=== PATIENT | female | born 1965 | race Caucasian/White ===

== ENCOUNTER 2018-10-23 18:16 | Inpatient (IN) | payer OTHER ==
[2018-10-23] MEDS ORDERED: ACETAMINOPHEN 325 MG TABLET (FP) PO ONE (19:31)
--- NOTE | 2018-10-23 19:31 | PDOC ---
Rapid Medical Evaluation Medical Evaluation: I have performed a brief in-person evaluation of this patient. The patient presents with a chief complaint of: hx HTN, leukopenia sent by PMD to get admitted for pneumonia; c/o fever, cough x 4 days; is currently taking Tamiflu (was not tested for flu); states went to [facility] yesterday and diagnosed with fatigue; no CXR was done at office; +smoker Pertinent physical exam findings: In NAD, lungs clear I have ordered the following: Flu swab, cxr, tylenol, labs The patient will proceed to the ED for further evaluation. 10/23/18 19:26 Discharge Disposition - Referrals Referrals: Joce Huynh MD [Primary Care Provider] - - Patient Instructions - Post Discharge Activity
--- NOTE | 2018-10-23 19:46 | PDOC ---
History of Present Illness - General Chief Complaint: Respiratory Stated Complaint: REF. BY DOC, POSSIBLE PNEUMONIA Time Seen by Provider: 10/23/18 19:26 History Source: Patient - History of Present Illness Initial Comments: 10/23/18 20:17 53 year old female undomicilied female living in detention c/o fever x 2 days , cough, with shortness of breath denies NVD, seen by Dr. Gonzalez today given nebulizer. as per pcp patient was note dto be hypoxic in the office today. sent to ED for evaluation. + smoker, Pmhx; crohns disease. ulcers, hypertension, anxiety 10/23/18 22:07 Past History - Past Medical History Allergies/Adverse Reactions: Allergies Allergy/AdvReac Type Severity Reaction Status Date / Time Sulfa (Sulfonamide Allergy Verified 10/23/18 19:32 Antibiotics) COPD: No GI Disorders: Yes (Protonix) HTN: Yes Psychiatric Problems: Yes - Suicide/Smoking/Psychosocial Hx Smoking History: Never smoked Have you smoked in the past 12 months: No Information on smoking cessation initiated: No Hx Alcohol Use: No Drug/Substance Use Hx: No Review of Systems - Review of Systems Able to Perform ROS?: Yes Is the patient limited Slovenian proficient: No Constitutional: Yes: Fever Respiratory: Yes: Cough, Shortness of Breath Cardiac (ROS): No: Symptoms Reported, See HPI, Chest Pain, Edema, Irregular Heart Rate, Lightheadedness, Palpitations, Syncope, Chest Tightness, Other ABD/GI: No: Symptoms Reported, See HPI, Abdominal Distended, Abd. Pain w/ defecation, Blood Streaked Bowels, Constipated, Diarrhea, Difficulty Swallowing , Nausea, Poor Appetite, Poor Fluid Intake, Rectal Bleeding, Vomiting, Indigestion, Abdominal cramping, Tarry Stools, Other : No: Symptoms Reported, See HPI, Burning, Dysuria, Discharge, Frequency, Flank Pain, Hematuria, Incontinence, Pain, Urgency, Testicular Mass, Testicular Swelling, Lesions, Testicular Pain, Other Musculoskeletal: No: Symptoms Reported, See HPI, Back Pain, Gout, Joint Pain, Joint Swelling, Muscle Pain, Muscle Weakness, Neck Pain, Joint Stiffness, Other *Physical Exam - Vital Signs Last Vital Signs Temp Pulse Resp BP Pulse Ox 100.6 F H 91 H 16 126/48 L 97 10/23/18 19:28 10/23/18 19:28 10/23/18 19:28 10/23/18 19:28 10/23/18 19:28 - Physical Exam General Appearance: Yes: Appropriately Dressed HEENT: positive: Nasal Congestion Respiratory/Chest: positive: Rhonchi, Other (coarse breath sounds) Cardiovascular: positive: Tachycardia Gastrointestinal/Abdominal: positive: Normal Bowel Sounds, Soft Extremity: positive: Normal Capillary Refill, Normal Inspection, Normal Range of Motion Integumentary: positive: Normal Color, Dry, Warm Neurologic: positive: Fully Oriented, Alert Moderate Sedation - Procedure Monitoring Vital Signs: Procedure Monitoring Vital Signs Temperature 100.6 F H 10/23/18 19:28 Pulse Rate 91 H 10/23/18 19:28 Respiratory Rate 16 10/23/18 19:28 Blood Pressure 126/48 L 10/23/18 19:28 O2 Sat by Pulse Oximetry (%) 97 10/23/18 19:28 ED Treatment Course - LABORATORY CBC & Chemistry Diagram: 10/23/18 20:35 10/23/18 20:35 Progress Note - Progress Note Progress Note: A: copd exacerbation P: labs solumedrol duoneb blood culture lactic acid Medical Decision Making - Medical Decision Making 10/23/18 22:[address] gonzalez. recommends admission for copd exacerbation ans bronchitis. IV antibiotics and nebs. 10/23/18 22:49 patient signed out to [facility] for overnight admission coverage. *DC/Admit/Observation/Transfer Diagnosis at time of Disposition: COPD exacerbation, Bronchitis Fever Qualifiers: Fever type: unspecified Qualified Code(s): R50.9 - Fever, unspecified - Discharge Dispostion Decision to Admit order: Yes - Referrals Referrals: Joce Huynh MD [Primary Care Provider] - - Patient Instructions - Post Discharge Activity
[2018-10-23] MEDS: ALBUTEROL SO4 2.5/IPRATROPIUM 0.5 INH SOL 3 ML VIAL.NEB. NEB SCH ×4 (20:20→20:35)
[2018-10-23] MEDS ORDERED: ACETAMINOPHEN 325 MG TABLET (FP) ONE (20:25)
[2018-10-23] MEDS ORDERED: ALBUTEROL SO4 2.5/IPRATROPIUM 0.5 INH SOL 3 ML VIAL.NEB. NEB ONE (20:25)
[2018-10-23] MEDS ORDERED: methylPREDNISolone NA SUCC 125 MG/2 ML VIAL IVPB ONE (20:31)
[2018-10-23 20:48] LABS: BASO % 0.5 % (0-2.0); EOS % 1.7 % (0-4.5); HEMATOCRIT 33.8 % (32.4-45.2); HEMOGLOBIN 12.1 GM/dL (10.7-15.3); LYMPH % 10.7 % (8-40); MCH 33.1 pg (25.7-33.7); MCHC 35.7 g/dl (32.0-36.0); MEAN CELL VOLUME 92.7 fl (80-96); MEAN PLT VOLUME 7.3 fl (7.5-11.1); MONO % 9.7 % (3.8-10.2); NEUT % 77.4 % (42.8-82.8); PLATELET COUNT 296 K/MM3 (134-434); RBC 3.65 M/mm3 (3.60-5.2); RDW 14.9 % (11.6-15.6); WHITE BLOOD COUNT 11.5 K/mm3 (4.0-10.0)
[2018-10-23] MEDS ORDERED: methylPREDNISolone NA SUCC 125 MG/2 ML VIAL ONE (20:48)
[2018-10-23 21:17] LABS: ALBUMIN 3.9 g/dl (3.4-5.0); ALK PHOS 165 U/L (45-117); ANION GAP 8 MMOL/L (8-16); BILIRUBIN,TOTAL 0.4 mg/dL (0.2-1); BLOOD UREA NITROGEN 8 mg/dL (7-18); CALCIUM 8.7 mg/dL (8.5-10.1); CHLORIDE 100 mmol/L (98-107); CO2 25 mmol/L (21-32); CREATININE 0.8 mg/dL (0.55-1.3); GLUCOSE,RANDOM 134 mg/dL (74-106); POTASSIUM 3.9 mmol/L (3.5-5.1); SGOT/AST 29 U/L (15-37); SGPT/ALT 57 U/L (13-61); SODIUM 132 mmol/L (136-145); TOT PROT 7.4 g/dl (6.4-8.2)
[2018-10-23] MEDS ORDERED: CEFTRIAXONE 1,000 MG in DEXTROSE 5%-WATER - 50 ML IVPB ONE (22:07)
[2018-10-23] MEDS ORDERED: AZITHROMYCIN IVPB 500 MG in DEXTROSE 5%-WATER - 250 ML IVPB ONE (22:07)
[2018-10-23] MEDS ORDERED: AZITHROMYCIN IVPB 500 MG/250 ML BAG IVPB ONE (22:28)
[2018-10-23] MEDS ORDERED: CEFTRIAXONE 1 GM/50 ML BAG ONE (22:29)
--- NOTE | 2018-10-23 23:06 | HP ---
CHIEF COMPLAINT: Cough, SOB, Fever PCP: Dr. Huynh HISTORY OF PRESENT ILLNESS: This is a 53 y/o woman homeless living at a senior care with a PMHx of: COPD, Smoker 1PPD, Hypertension. Who presents to the ED with cough, SOB, fever. Patient was seen by her PCP for same, did not picking supervisor her Rxs. Patient reports having a productive cough yellow/green sputum worse over the last 3 days. Patient reports having a subjective fever 102.0 at the senior care. Patient denies GALINDO, dizziness, palpitations, AP, N/V/D, constipation, dysuria. ER course was notable for: (1) Chest Xray- no acute pathology (2) Rapid Influenza- neg A+B (3) WBC 11.5 Recent Travel: None PAST MEDICAL HISTORY: COPD HTN Smoker 1PPD PAST SURGICAL HISTORY: Bilateral TKR Bilateral Foot Fusions L- Forearm with plates/screws Social History: Smoking: Cigarette 1PPD Alcohol: Denies Drugs: Denies Resides in a Assisted Family History: Allergies Sulfa (Sulfonamide Antibiotics) Allergy (Verified 10/23/18 19:32) HOME MEDICATIONS: 3 Medication Instructions Recorded Alprazolam [Xanax] 2 mg PO BID 10/24/18 Amlodipine Besylate [Norvasc -] 20 mg PO BID 10/24/18 Atenolol [Tenormin -] 50 mg PO BID 10/24/18 Clonazepam [Klonopin] 1 mg PO BID 10/24/18 Gabapentin [Neurontin -] 300 mg PO BID 10/24/18 Losartan Potassium [Cozaar -] 50 mg PO DAILY 10/24/18 Pantoprazole Sodium [Protonix -] 40 mg PO DAILY 10/24/18 REVIEW OF SYSTEMS CONSTITUTIONAL: fever Absent: chills, diaphoresis, generalized weakness, malaise, loss of appetite, weight change HEENT: Absent: rhinorrhea, nasal congestion, throat pain, throat swelling, difficulty swallowing, mouth swelling, ear pain, eye pain, visual changes CARDIOVASCULAR: Absent: chest pain, syncope, palpitations, irregular heart rate, lightheadedness , peripheral edema RESPIRATORY: cough, shortness of breath, wheezing Absent: dyspnea with exertion, orthopnea, stridor, hemoptysis GASTROINTESTINAL: Absent: abdominal pain, abdominal distension, nausea, vomiting, diarrhea, constipation, melena, hematochezia GENITOURINARY: Absent: dysuria, frequency, urgency, hesitancy, hematuria, flank pain, genital pain MUSCULOSKELETAL: Absent: myalgia, arthralgia, joint swelling, back pain, neck pain SKIN: Absent: rash, itching, pallor HEMATOLOGIC/IMMUNOLOGIC: Absent: easy bleeding, easy bruising, lymphadenopathy, frequent infections ENDOCRINE: Absent: unexplained weight gain, unexplained weight loss, heat intolerance, cold intolerance NEUROLOGIC: Absent: headache, focal weakness or paresthesias, dizziness, unsteady gait, seizure, mental status changes, bladder or bowel incontinence PSYCHIATRIC: Absent: anxiety, depression, suicidal or homicidal ideation, hallucinations. PHYSICAL EXAMINATION Vital Signs - 24 hr 10/23/18 19:28 Temperature 100.6 F H Pulse Rate 91 H Respiratory 16 Rate Blood Pressure 126/48 L O2 Sat by Pulse 97 Oximetry (%) GENERAL: Awake, alert, and fully oriented, in no acute distress. HEAD: Normal with no signs of trauma. EYES: Pupils equal, round and reactive to light, extraocular movements intact, sclera anicteric, conjunctiva clear. No lid lag. EARS, NOSE, THROAT: Ears normal, nares patent, oropharynx clear without exudates. Moist mucous membranes. NECK: Normal range of motion, supple without lymphadenopathy, JVD, or masses. LUNGS: Scattered diffuse wheeze with crackles. + cough. No accessory muscle use. HEART: Regular rate and rhythm, normal S1 and S2 without murmur, rub or gallop. ABDOMEN: Soft, nontender, not distended, normoactive bowel sounds, no guarding, no rebound, no masses. No hepatomegaly or splenomegaly. MUSCULOSKELETAL: Normal range of motion at all joints. No bony deformities or tenderness. No CVA tenderness. UPPER EXTREMITIES: 2+ pulses, warm, well-perfused. No cyanosis. No clubbing. No peripheral edema. LOWER EXTREMITIES: 2+ pulses, warm, well-perfused. No calf tenderness. No peripheral edema. NEUROLOGICAL: Cranial nerves II-XII intact. Normal speech. Normal gait. PSYCHIATRIC: Cooperative. Good eye contact. Appropriate mood and affect. SKIN: Warm, dry, normal turgor, no rashes or lesions noted, normal capillary refill. Laboratory Results - last 24 hr 10/23/18 10/23/18 10/23/18 19:33 20:35 20:35 WBC 11.5 H RBC 3.65 Hgb 12.1 Hct 33.8 MCV 92.7 MCH 33.1 MCHC 35.7 RDW 14.9 Plt Count 296 MPV 7.3 L Absolute Neuts (auto) 8.9 H Neutrophils % 77.4 Lymphocytes % 10.7 Monocytes % 9.7 Eosinophils % 1.7 Basophils % 0.5 Nucleated RBC % 0 Sodium Potassium Chloride Carbon Dioxide Anion Gap BUN Creatinine Creat Clearance w eGFR Random Glucose Lactic Acid 1.1 Calcium Total Bilirubin AST ALT Alkaline Phosphatase Troponin I Total Protein Albumin Influenza A (Rapid) Negative Influenza B (Rapid) Negative 10/23/18 20:35 WBC RBC Hgb Hct MCV MCH MCHC RDW Plt Count MPV Absolute Neuts (auto) Neutrophils % Lymphocytes % Monocytes % Eosinophils % Basophils % Nucleated RBC % Sodium 132 L Potassium 3.9 Chloride 100 Carbon Dioxide 25 Anion Gap 8 BUN 8 Creatinine 0.8 Creat Clearance w eGFR 74.47 Random Glucose 134 H Lactic Acid Calcium 8.7 Total Bilirubin 0.4 AST 29 ALT 57 Alkaline Phosphatase 165 H Troponin I < 0.02 Total Protein 7.4 Albumin 3.9 Influenza A (Rapid) Influenza B (Rapid) ASSESSMENT/PLAN: This is a 53 y/o woman with a PMHx of: COPD, Tobacco Use 1PPD. Admitted for Acute COPD Exacerbation, Chronic Bronchitis for further evaluation of their emergent condition. Plan: See Problem List FEN PO Fluids as tolerated Replete lytes prn Low Na Diet DVT ppx OOB SCDs Heparin SQ Dispo: Requires Inpatient Care Problem List - Problem (1) COPD exacerbation Assessment/Plan: Chest Xray- no acute chest pathology Duonebs, solumederol given in ED Appreciate Pulm consult Will continue Solumederol w/taper Duonebs Patient counseled on smoking cessation, patient is amendable, however declines Nicoderm Patch O2 Monitor CBC, BMP Monitor vitals Continue ABX Code(s): J44.1 - CHRONIC OBSTRUCTIVE PULMONARY DISEASE W (ACUTE) EXACERBATION (2) Bronchitis Assessment/Plan: See above Continue IV ABX Monitor vitals Code(s): J40 - BRONCHITIS, NOT SPECIFIED ACUTE OR CHRONIC (3) Fever Assessment/Plan: See above Code(s): R50.9 - FEVER, UNSPECIFIED Qualifiers: Fever type: unspecified Qualified Code(s): R50.9 - Fever, unspecified (4) HTN (hypertension) Assessment/Plan: stable Continue home meds Monitor renal function Code(s): I10 - ESSENTIAL (PRIMARY) HYPERTENSION (5) Anxiety Assessment/Plan: Continue home meds Code(s): F41.9 - ANXIETY DISORDER, UNSPECIFIED (6) Tobacco dependence due to cigarettes Assessment/Plan: Counseled on Smoking Cessation Code(s): F17.210 - NICOTINE DEPENDENCE, CIGARETTES, UNCOMPLICATED Visit type - Emergency Visit Emergency Visit: Yes ED Registration Date: 10/23/18 Care time: The patient presented to the Emergency Department on the above date and was hospitalized for further evaluation of their emergent condition. - New Patient This patient is new to me today: Yes Date on this admission: 10/23/18 - Critical Care Critical Care patient: No
[2018-10-24 02:40] VITALS: BMI 22.0
[2018-10-24] MEDS: methylPREDNISolone NA SUCC 40 MG/1 ML VIAL IVPUSH SCH ×2 (03:05→10:13)
[2018-10-24] MEDS ORDERED: PNEUMOC 13-VAL CONJ-DIP CRM/PF 0.5 ML DISP.SYRIN IM ONE (06:40)
[2018-10-24 06:54] VITALS: TEMP 98.1
[2018-10-24 07:06] LABS: HEMATOCRIT 29.7 % (32.4-45.2); HEMOGLOBIN 10.6 GM/dL (10.7-15.3); LYMPH % 6.1 % (8-40); MCH 32.9 pg (25.7-33.7); MCHC 35.7 g/dl (32.0-36.0); MEAN PLT VOLUME 7.7 fl (7.5-11.1); MONO % 1.6 % (3.8-10.2); NEUT % 92.3 % (42.8-82.8); PLATELET COUNT 289 K/MM3 (134-434); RBC 3.23 M/mm3 (3.60-5.2); RDW 14.9 % (11.6-15.6); WHITE BLOOD COUNT 9.9 K/mm3 (4.0-10.0)
[2018-10-24] MEDS: ALBUTEROL SO4 2.5/IPRATROPIUM 0.5 INH SOL 3 ML VIAL.NEB. NEB SCH ×3 (07:07→15:59)
[2018-10-24 07:52] LABS: ANION GAP 6 MMOL/L (8-16); BLOOD UREA NITROGEN 9 mg/dL (7-18); CALCIUM 8.7 mg/dL (8.5-10.1); CHLORIDE 101 mmol/L (98-107); CO2 26 mmol/L (21-32); CREATININE 0.8 mg/dL (0.55-1.3); GLUCOSE,RANDOM 203 mg/dL (74-106); POTASSIUM 4.1 mmol/L (3.5-5.1); SODIUM 133 mmol/L (136-145)
[2018-10-24] MEDS ORDERED: PNEUMOCOCCAL 23 VACCINE 0.5 ML VIAL IM ONE (09:00)
[2018-10-24] MEDS ORDERED: FLU VACCINE QUAD 60 MCG/0.5 ML (MDV 18-19) IM ONE (09:00)
[2018-10-24] MEDS ORDERED: ALPRAZolam 2 MG TABLET PO PRN (09:33)
[2018-10-24] MEDS ORDERED: ACETAMINOPHEN 325 MG TABLET (FP) PO PRN (09:37)
[2018-10-24] MEDS ORDERED: PANTOPRAZOLE 40 MG TABLET (FP) PO SCH (10:00)
[2018-10-24] MEDS ORDERED: ATENOLOL 50 MG TABLET (FP) PO SCH (10:00)
[2018-10-24] MEDS ORDERED: LOSARTAN POTASSIUM 50 MG TABLET (FP) PO SCH (10:00)
[2018-10-24] MEDS ORDERED: AZITHROMYCIN IVPB 500 MG in DEXTROSE 5%-WATER - 250 ML IVPB SCH (10:00)
[2018-10-24] MEDS ORDERED: AZITHROMYCIN IVPB 500 MG/250 ML BAG IVPB SCH (10:00)
[2018-10-24] MEDS ORDERED: GABAPENTIN 300 MG CAPSULE (FP) PO SCH (10:00)
[2018-10-24] MEDS ORDERED: CEFTRIAXONE 1 GM in DEXTROSE 5%-WATER - 50 ML IVPB SCH (10:00)
[2018-10-24] MEDS ORDERED: PATIENT'S OWN MEDICATION (NON-FORMULARY) (Clonazepam [Klonopin] 1 MG) PO SCH (10:00)
[2018-10-24] MEDS ORDERED: cefTRIAXone SODIUM 1 GM VIAL ONE (10:05)
[2018-10-24] MEDS ORDERED: DEXTROSE 5%-WATER - 50 ML IVPB ONE (10:05)
[2018-10-24 10:23] LABS: ANISOCYTOSIS 0; HELMET CELLS 0; HOWELL-JOLLY BODIES 0; MACROCYTOSIS 0; OVALOCYTE 0; PLATELET ESTIMATE NORMAL; ROULEAU 0; SICKELED CELLS 0; TARGET CELLS 0; TEAR DROP CELLS 0; TOXIC GRANULATION 0
--- NOTE | 2018-10-24 14:25 | PN ---
Progress Note (short form) - Note Progress Note: PULMONARY CONSULTATION DICTATED 10/24/18 IMP ACUTE HYPOXEMIC RESPIRATORY FAILURE COPD EXACERBATION BILATERAL GROUND GLASS INFILTRATES TOBACCO ABUSE PLAN IV STEROIDS INHALED BRONCHODILATORS ABX SPUTUM C+S F/U CHEST CT OUTPATIENT PFTS OUTPATIENT DR BLAKELY Problem List - Problems (1) Acute hypoxemic respiratory failure Code(s): J96.01 - ACUTE RESPIRATORY FAILURE WITH HYPOXIA (2) COPD exacerbation Code(s): J44.1 - CHRONIC OBSTRUCTIVE PULMONARY DISEASE W (ACUTE) EXACERBATION (3) Fever Code(s): R50.9 - FEVER, UNSPECIFIED Qualifiers: Fever type: unspecified Qualified Code(s): R50.9 - Fever, unspecified (4) HTN (hypertension) Code(s): I10 - ESSENTIAL (PRIMARY) HYPERTENSION (5) Tobacco dependence due to cigarettes Code(s): F17.210 - NICOTINE DEPENDENCE, CIGARETTES, UNCOMPLICATED (6) Ground glass opacity present on imaging of lung Code(s): R91.8 - OTHER NONSPECIFIC ABNORMAL FINDING OF LUNG FIELD
[2018-10-24 14:54] VITALS: BP 125/79; PULSE 82
--- NOTE | 2018-10-24 15:43 | PN ---
Progress Note, Physician Chief Complaint: 53 y.o F-with history of COPD and smoking was hospitalized after she presented to the office with fever, hypoxemia, SOB and cough with yellow thick sputum History of Present Illness: COPD. Smoking addition. HTN Multiple ankle surgeries. Chronic pain . Anxiety disorder. - Current Medication List Current Medications: Active Medications Acetaminophen (Tylenol -) 650 mg PO Q6H PRN PRN Reason: FEVER Albuterol/Ipratropium (Duoneb -) 1 amp NEB RQID [facility] Last Admin: 10/24/18 12:38 Dose: Not Given Alprazolam (Xanax -) 2 mg PO Q12H PRN PRN Reason: ANXIETY Last Admin: 10/24/18 10:34 Dose: 2 mg Atenolol (Tenormin -) 50 mg PO BID [facility] Last Admin: 10/24/18 10:13 Dose: 50 mg Gabapentin (Neurontin -) 300 mg PO BID [facility] Last Admin: 10/24/18 10:13 Dose: 300 mg Azithromycin (Zithromax 500mg Ivpb (Pre-Docked)) 500 mg in 250 mls @ 250 mls/ hr IVPB DAILY [facility] Last Admin: 10/24/18 11:13 Dose: 250 mls/hr Ceftriaxone Sodium 1 gm/ (Dextrose) 50 mls @ 100 mls/hr IVPB DAILY [facility]; Protocol Last Admin: 10/24/18 10:12 Dose: 100 mls/hr Losartan Potassium (Cozaar -) 50 mg PO DAILY [facility] Last Admin: 10/24/18 10:13 Dose: 50 mg Methylprednisolone Sodium Succinate (Solu-Medrol -) 40 mg IVPUSH Q8H-IV [facility] Last Admin: 10/24/18 10:13 Dose: 40 mg Non-Formulary Medication (Clonazepam [Klonopin]) 1 mg PO BID [facility] Pantoprazole Sodium (Protonix -) 40 mg PO DAILY [facility] Last Admin: 10/24/18 10:13 Dose: 40 mg - Objective Vital Signs: Vital Signs Temperature 98.1 F 10/24/18 14:47 Pulse Rate 82 10/24/18 14:47 Respiratory Rate 22 H 10/24/18 14:47 Blood Pressure 125/79 10/24/18 14:47 O2 Sat by Pulse Oximetry (%) 98 10/23/18 23:59 Constitutional: Yes: No Distress, Anxious Eyes: Yes: Conjunctiva Clear, EOM Intact HENT: Yes: Atraumatic, Normocephalic Neck: Yes: Supple, Trachea Midline. No: Decreased ROM, Lymphadenopathy Cardiovascular: Yes: Regular Rate and Rhythm, S1, S2. No: Bradycardia, Tachycardia, Pulse Irregular, Bruit, JVD, Gallop, Murmur Respiratory: Yes: Regular, Cough, Rhonchi, SOB, SOB on Exertion, Wheezes Gastrointestinal: Yes: Normal Bowel Sounds, Soft. No: Abdomen, Obese ...Rectal Exam: Yes: Deferred Genitourinary: No: Anuria, Bladder Distention, CVA Tenderness - Left, CVA Tenderness - Right Breast(s): Yes: WNL Musculoskeletal: No: Back Pain, Joint Stiffness, Joint Swelling Extremities: No: Amputation, Calf Tenderness, Cyanosis Edema: No Peripheral Pulses WNL: Yes Integumentary: Yes: WNL Neurological: Yes: Alert, Oriented. No: Aphasia, Dysarthria ...Motor Strength: WNL Psychiatric: Yes: WNL Labs: CBC, BMP 10/24/18 06:10 10/24/18 06:10 Laboratory Results - last 24 hr 10/23/18 10/23/18 10/23/18 19:33 20:35 20:35 WBC 11.5 H RBC 3.65 Hgb 12.1 Hct 33.8 MCV 92.7 MCH 33.1 MCHC 35.7 RDW 14.9 Plt Count 296 MPV 7.3 L Absolute Neuts (auto) 8.9 H Neutrophils % 77.4 Neutrophils % (Manual) Band Neutrophils % Lymphocytes % 10.7 Lymphocytes % (Manual) Monocytes % 9.7 Monocytes % (Manual) Eosinophils % 1.7 Eosinophils % (Manual) Basophils % 0.5 Basophils % (Manual) Myelocytes % (Man) Promyelocytes % (Man) Blast Cells % (Manual) Nucleated RBC % 0 Metamyelocytes Hypochromia Toxic Granulation Dohle Bodies Platelet Estimate Polychromasia Poikilocytosis Basophilic Stippling Anisocytosis Microcytosis Macrocytosis Spherocytes Sickle Cells Target Cells Tear Drop Cells Ovalocytes Stomatocytes Helmet Cells [place] Bodies [place] Rings [place] Cells Acanthocytes (Spur) Rouleaux Fragmented RBCs Schistocytes Sodium Cancelled Potassium Cancelled Chloride Cancelled Carbon Dioxide Cancelled Anion Gap Cancelled BUN Cancelled Creatinine Cancelled Creat Clearance w eGFR Cancelled Random Glucose Cancelled Lactic Acid Calcium Cancelled Total Bilirubin AST ALT Alkaline Phosphatase Troponin I Total Protein Albumin Influenza A (Rapid) Negative Influenza B (Rapid) Negative 10/23/18 10/23/18 10/24/18 20:35 20:35 06:10 WBC 9.9 RBC 3.23 L Hgb 10.6 L Hct 29.7 L MCV 92.0 MCH 32.9 MCHC 35.7 RDW 14.9 Plt Count 289 MPV 7.7 Absolute Neuts (auto) 9.1 H Neutrophils % 92.3 H Neutrophils % (Manual) 92.0 H Band Neutrophils % 0.0 Lymphocytes % 6.1 L D Lymphocytes % (Manual) 6.0 L Monocytes % 1.6 L D Monocytes % (Manual) 2 L Eosinophils % 0.0 D Eosinophils % (Manual) 0.0 Basophils % 0.0 Basophils % (Manual) 0.0 Myelocytes % (Man) 0 Promyelocytes % (Man) 0 Blast Cells % (Manual) 0 Nucleated RBC % 0 Metamyelocytes 0 Hypochromia 0 Toxic Granulation 0 Dohle Bodies 0 Platelet Estimate Normal Polychromasia 0 Poikilocytosis 0 Basophilic Stippling 0 Anisocytosis 0 Microcytosis 0 Macrocytosis 0 Spherocytes 0 Sickle Cells 0 Target Cells 0 Tear Drop Cells 0 Ovalocytes 0 Stomatocytes 0 Helmet Cells 0 [place] Bodies 0 [place] Rings 0 Kyle Cells 0 Acanthocytes (Spur) 0 Rouleaux 0 Fragmented RBCs 0 Schistocytes 0 Sodium 132 L Potassium 3.9 Chloride 100 Carbon Dioxide 25 Anion Gap 8 BUN 8 Creatinine 0.8 Creat Clearance w eGFR 74.47 Random Glucose 134 H Lactic Acid 1.1 Calcium 8.7 Total Bilirubin 0.4 AST 29 ALT 57 Alkaline Phosphatase 165 H Troponin I < 0.02 Total Protein 7.4 Albumin 3.9 Influenza A (Rapid) Influenza B (Rapid) 10/24/18 06:10 WBC RBC Hgb Hct MCV MCH MCHC RDW Plt Count MPV Absolute Neuts (auto) Neutrophils % Neutrophils % (Manual) Band Neutrophils % Lymphocytes % Lymphocytes % (Manual) Monocytes % Monocytes % (Manual) Eosinophils % Eosinophils % (Manual) Basophils % Basophils % (Manual) Myelocytes % (Man) Promyelocytes % (Man) Blast Cells % (Manual) Nucleated RBC % Metamyelocytes Hypochromia Toxic Granulation Dohle Bodies Platelet Estimate Polychromasia Poikilocytosis Basophilic Stippling Anisocytosis Microcytosis Macrocytosis Spherocytes Sickle Cells Target Cells Tear Drop Cells Ovalocytes Stomatocytes Helmet Cells [place] Bodies [place] Rings [place] Cells Acanthocytes (Spur) Rouleaux Fragmented RBCs Schistocytes Sodium 133 L Potassium 4.1 Chloride 101 Carbon Dioxide 26 Anion Gap 6 L BUN 9 Creatinine 0.8 Creat Clearance w eGFR 74.47 Random Glucose 203 H Lactic Acid Calcium 8.7 Total Bilirubin AST ALT Alkaline Phosphatase Troponin I Total Protein Albumin Influenza A (Rapid) Influenza B (Rapid) Problem List - Problems (1) Acute hypoxemic respiratory failure Assessment/Plan: Continue nebs Steroids. O2 supplemental. Code(s): J96.01 - ACUTE RESPIRATORY FAILURE WITH HYPOXIA (2) COPD exacerbation Assessment/Plan: continue nebs steroid will taper off. Code(s): J44.1 - CHRONIC OBSTRUCTIVE PULMONARY DISEASE W (ACUTE) EXACERBATION (3) Ground glass opacity present on imaging of lung Code(s): R91.8 - OTHER NONSPECIFIC ABNORMAL FINDING OF LUNG FIELD (4) HTN (hypertension) Code(s): I10 - ESSENTIAL (PRIMARY) HYPERTENSION Qualifiers: Hypertension type: essential hypertension Qualified Code(s): I10 - Essential (primary) hypertension (5) Tobacco dependence due to cigarettes Assessment/Plan: Smoking stopping again advised and discussed. Code(s): F17.210 - NICOTINE DEPENDENCE, CIGARETTES, UNCOMPLICATED
--- NOTE | 2018-10-24 16:54 | CONS ---
DATE OF CONSULTATION: 10/24/2018 PULMONARY CONSULTATION REFERRING PHYSICIAN: Joce Huynh M.D. HISTORY OF PRESENT ILLNESS: The patient is a 53-year-old white female with a past medical history of COPD/asthma, longstanding history of tobacco abuse, 2 packs per day for many years, currently smoking a half pack per day, colitis, hypertension, anxiety, currently homeless, lives in a senior living, admitted to [facility] complaining of a 2-day history of fever, cough, chest congestion, and shortness of breath. Patient was seen by Dr. Huynh the day of admission, noted to be hypoxic, at which time she was sent to the emergency room. In the ER, she underwent a CTA chest CT which revealed evidence of bilateral ground glass opacity. She was admitted. She was started on IV steroids, inhaled bronchodilators and antibiotic therapy. Patient denies any chest pain, nausea, vomiting, diaphoresis. Denies any hemoptysis. As stated before, she denies any history of occupational exposure to chemicals or fumes. As stated before, she has history of tobacco use many years and currently still smokes. 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 There is no history of recent travel. PAST MEDICAL HISTORY: Again includes COPD, hypertension, history of colitis. REVIEW OF SYSTEMS: Positive cough. Positive shortness of breath. Positive sputum production. Positive fever. Positive chills. No nausea. No vomiting. No hemoptysis. No abdominal pain. CURRENT MEDICATIONS: Include Solu-Medrol, Tylenol, Cozaar, Zithromax, ceftriaxone, Neurontin, Xanax, DuoNeb, Tenormin, Protonix. PHYSICAL EXAMINATION: GENERAL: The patient is a well-developed, nourished female, awake, alert, currently in no acute distress. VITAL SIGNS: T-max 100.6, currently 98.1. Blood pressure 114/54, respiratory rate 20, and O2 saturation is 98% on room air . HEENT: Normocephalic, atraumatic. NECK: Supple without any adenopathy. HEART: Regular S1, S2. CHEST: Scattered bilateral wheezes. ABDOMEN: Soft, bowel sounds positive. EXTREMITIES: No cyanosis, edema. LABORATORY: WBC is 9.9, hemoglobin 10.6, hematocrit 29.7, initial WBC was 11.5, hemoglobin 12.1, hematocrit 33.8, with a platelet count of 296,000. Chemistries, BUN is 9, creatinine 0.9, serum sodium 133. Chest CT, no chronic change of lung disease. There are isolated increased markings bilaterally and a few areas of ground glass opacification bilaterally. IMPRESSION: Acute hypoxemic respiratory failure likely secondary to: 1. Acute exacerbation of chronic obstructive pulmonary disease. 2. pneumonia versus bronchitis. 3. History of hypertension. 4. Anxiety. 5. Ground glass opacities. 6. Tobacco abuse. PLAN: Continue antibiotic therapy, supplemental O2, inhaled bronchodilators, a short course of steroids, as well as obtain a followup chest CT in approximately 6-8 weeks to document resolution of ground glass opacities. Also recommend yearly low-dose chest CT and lung cancer screening. Smoking cessation counseled. INDRA BLAKELY M.D. [id number]
[2018-10-25] MEDS ORDERED: methylPREDNISolone NA SUCC 40 MG/1 ML VIAL IVPUSH SCH (10:00)
== END 2018-10-24 17:17 | disposition left against medical advice (07) | DRG 189 ==
LOC: JER 18:16 → JERBED 22:36 → J5S 10-24 01:43
PROVIDERS: ADMIT Internal Medicine; ATTEND Internal Medicine
DX: J96.01 Acute respiratory failure with hypoxia (principal); J44.1 Chronic obstructive pulmonary disease with (acute) exacerbation; I10 Essential (primary) hypertension; F17.210 Nicotine dependence, cigarettes, uncomplicated; F41.9 Anxiety disorder, unspecified; R50.9 Fever, unspecified; R91.8 Other nonspecific abnormal finding of lung field; Z96.653 Presence of artificial knee joint, bilateral; J42 Unspecified chronic bronchitis; Z59.0 Homelessness
CPT/HCPCS: 36415; 71046-TC-FY; 71250-TC; 80048; 80053; 83605; 84484; 85025; 87040; 87804; 90688; 90732; 94640; 99282-25; G0008; G0009

== ENCOUNTER 2018-12-27 22:04 | Inpatient (IN) | payer OTHER | END 2019-01-03 10:33 | disposition left against medical advice (07) | LOC: JERBED 12-28 01:17 → JER 22:04 → JICU 12-28 04:49 → J6S 12-28 21:13 ==

== ENCOUNTER 2019-02-15 20:40 | Emergency (ER) | payer OTHER ==
[2019-02-15 22:07] VITALS: BMI 36.1
--- NOTE | 2019-02-15 23:22 | PDOC ---
History of Present Illness - General Chief Complaint: Syncope/Near Syncope Stated Complaint: SYNCOPE Time Seen by Provider: 02/15/19 22:56 History Source: Patient Exam Limitations: No Limitations - History of Present Illness Initial Comments: 53 yo F PMH HTN, panic disorder, Tourette's, PTSD, p/w fall and LOC. Patient normally stays at the [facility], however decided to "live outside" for the past two days. Was not able to sleep very much during that time. However, last night she got food and had a good night sleep. She says she was walking with friends and fell, hit her head, then lost consciousness. She does not know how long she was down. She states her friend told her "the curb debbie up", however she does not believe that she tripped. She denies dizziness or lightheadness prior to the fall. She had L elbow pain and leg pain at the areas where she fell, also feels pain at the back of the head. Denies neck pain or ROM issues. denies drug use or change in medications. Denies CP, SOB, constipation/diarrhea, fevers/chills, nausea/vomiting, dizziness , lightheadedness, headache. 02/15/19 23:17 Past History - Past Medical History Allergies/Adverse Reactions: Allergies Allergy/AdvReac Type Severity Reaction Status Date / Time Sulfa (Sulfonamide Allergy Verified 02/15/19 21:28 Antibiotics) Home Medications: Ambulatory Orders Albuterol Sulfate Inhaler - [Ventolin HFA Inhaler -] 1 - 2 inh PO QID 01/29/16 Atenolol [Tenormin -] 50 mg PO BID 01/29/16 Haloperidol Lactate [Haldol] 5 mg PO BID 01/29/16 Simvastatin 10 mg PO HS 01/29/16 Tiotropium [place] [Spiriva] 1 inh PO DAILY 01/29/16 Amlodipine Besylate [Norvasc -] 20 mg PO BID 10/24/18 Clonazepam [Klonopin] 1 mg PO BID 10/24/18 Gabapentin [Neurontin -] 300 mg PO BID 10/24/18 Losartan Potassium [Cozaar -] 50 mg PO DAILY 10/24/18 Pantoprazole Sodium [Protonix -] 40 mg PO DAILY 10/24/18 Asthma: Yes COPD: Yes GI Disorders: Yes (Protonix) HTN: Yes Psychiatric Problems: Yes (panic,anxiety,TErrets mild, PTSD) - Immunization History Immunization Up to Date: Yes - Suicide/Smoking/Psychosocial Hx Smoking History: Unknown if ever smoked Have you smoked in the past 12 months: No Number of Cigarettes Smoked Daily: 6 Information on smoking cessation initiated: No 'Breaking Loose' booklet given: 11/28/16 Hx Alcohol Use: Yes Drug/Substance Use Hx: Yes Substance Use Type: None Review of Systems - Review of Systems Constitutional: No: Chills, Diaphoresis, Fever HEENTM: No: Eye Pain, Blurred Vision, Recent change in vision, Double Vision, Nose Pain, Tinnitus, Throat Pain, Throat Swelling, Mouth Pain, Difficulty Swallowing, Mouth Swelling Respiratory: No: Cough, Orthopnea, Shortness of Breath Cardiac (ROS): No: Chest Pain, Lightheadedness, Palpitations ABD/GI: Yes: Poor Fluid Intake. No: Constipated, Diarrhea, Nausea, Vomiting Neurological: No: Headache, Numbness, Pre-Existing Deficit, Seizure Psychiatric: Yes: Other (panic disorder) *Physical Exam - Vital Signs Last Vital Signs Temp Pulse Resp BP Pulse Ox 97.7 F 63 20 125/69 95 02/15/19 21:28 02/15/19 21:28 02/15/19 21:28 02/15/19 21:28 02/15/19 21:28 - Physical Exam General Appearance: Yes: Disheveled, Other (sleepy) HEENT: positive: EOMI, Other (horizontal nystagmus bilaterally) Neck: positive: Trachea midline, Normal Thyroid, Supple. negative: Decreased range of motion, Rigidity, Tender lateral, Tender midline Respiratory/Chest: positive: Lungs Clear, Normal Breath Sounds. negative: Chest Tender, Respiratory Distress, Accessory Muscle Use Cardiovascular: positive: Regular Rhythm, Regular Rate Gastrointestinal/Abdominal: positive: Normal Bowel Sounds, Soft. negative: Tender Musculoskeletal: positive: Normal Inspection. 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 negative: Alert (sleepy), Sensory Deficit Medical Decision Making - Medical Decision Making History indicates fall w/o presyncope or syncope. Will get CT head, CBC, and CMP. Give acetaminophen IV for pain. 02/15/19 23:35
[2019-02-15] MEDS ORDERED: ACETAMINOPHEN 1000 MG/100 ML VIAL (NON FORMULARY) IVPB ONE (23:29)
[2019-02-15] MEDS ORDERED: ACETAMINOPHEN INJECTION 100 ML IVPB ONE (23:57)
[2019-02-16] MEDS ORDERED: ACETAMINOPHEN 325 MG TABLET (FP) PO ONE (00:21)
[2019-02-16] MEDS ORDERED: ACETAMINOPHEN 325 MG TABLET (FP) ONE (00:37)
--- NOTE | 2019-02-16 01:04 | PDOC ---
Documentation entered by Sangita Houser SCRIBE, acting as scribe for Baylee Xavier MD. Baylee Xavier MD: This documentation has been prepared by the Mik spaulding Xhesika, SCRIBE, under my direction and personally reviewed by me in its entirety. I confirm that the documentation accurately reflects all work, treatment, procedures, and medical decision making performed by me. Attending Attestation - Resident Resident Name: Titi Bean - [facility] HPI: 02/16/19 00:53 The patient is a 53 year old female, from [facility], with a significant PMH of psychiatric d/o and COPD who presents to the emergency department via EMS s/p fall. Patient states she lives at [facility], however she has been living outside for the past 2 days. The patient states she was with her friends walking outside when she fell, hit her head and lost consciousness, however, she does not remember how long she was unconscious for. The patient notes she was able to ambulate shortly after. The patient states she endorsed a L elbow laceration associated with pain since this morning. The patient does not remember when her last tetanus was. The patient denies chest pain, shortness of breath, neck pain, sweating or dizziness. Denies fever, chills, nausea, vomiting, diarrhea and constipation. Denies dysuria, frequency, urgency and hematuria. Allergies: Sulfa PCP: Dr. Huynh - Physicial Exam PE: 02/16/19 00:53 GENERAL: Awake, alert, and fully oriented, in no acute distress HEAD: No signs of trauma EYES: PERRLA, EOMI, sclera anicteric, conjunctiva clear ENT: Auricles normal inspection, hearing grossly normal, nares patent, oropharynx clear without exudates. Moist mucosa NECK: Normal ROM, supple, no lymphadenopathy, JVD, or masses LUNGS: Breath sounds equal, clear to auscultation bilaterally. No wheezes, and no crackles HEART: Regular rate and rhythm, normal S1 and S2, no murmurs, rubs or gallops ABDOMEN: Soft, nontender, normoactive bowel sounds. No guarding, no rebound. No masses EXTREMITIES: (+) 1.5cm laceration to her L elbow. Normal range of motion, no edema. No clubbing or cyanosis. No cords, erythema, or tenderness NEUROLOGICAL: Cranial nerves II through XII grossly intact. SKIN: Warm, Dry, normal turgor, no rashes or lesions noted. - Medical Decision Making 02/16/19 01:00 Pt presents to the Ed complaining of fall with hitting her head and LOC. Also has laceration to her L elbow that is greater than [address] old[address] head to rule out intracranial bleed. Laceration is not eligible for suturing given how old it is, but will irrigate. Will give tetanus vaccine. Will likely discharge home if CT head is negative.
--- NOTE | 2019-02-16 01:46 | PDOC ---
*Physical Exam - Vital Signs Last Vital Signs Temp Pulse Resp BP Pulse Ox 97.7 F 63 20 125/69 95 02/15/19 21:28 02/15/19 21:28 02/15/19 21:28 02/15/19 21:28 02/15/19 21:28 ED Treatment Course - Medications Given in the ED: ED Medications Discontinued Medications Generic Name Dose Route Start Last Admin Trade Name Lei PRN Reason Stop Dose Admin Acetaminophen 1,000 mg 02/15/19 23:29 02/16/19 00:41 Ofirmev Injection - IVPB 02/15/19 23:30 Not Given ONCE ONE Acetaminophen 975 mg 02/16/19 00:21 02/16/19 00:40 Tylenol - PO 02/16/19 00:22 975 mg ONCE ONE Administration Medical Decision Making - Medical Decision Making 53 yo F PMH HTN, panic disorder, Tourette's, PTSD, presenting after a fall. 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 Mass effect: None. Brain parenchyma: Likely chronic ischemic changes" Wound cleaned with normal saline irrigation after lidocaine preparation. Steri- strips placed. No foreign body noted. Left to heal with steri-strips as suturing is contraindicated due to the increased risk for infection due to the age of the wound Patient states her last tetanus shot was two years ago Discharged *DC/Admit/Observation/Transfer Diagnosis at time of Disposition: Fall Qualifiers: Encounter type: initial encounter Qualified Code(s): W19.XXXA - Unspecified fall, initial encounter - Discharge Dispostion Disposition: HOME Condition at time of disposition: Stable - Referrals - Patient Instructions Printed Discharge Instructions: How to Prevent Falls Additional Instructions: You came into the ED after a fall. CT imaging of your head did not show acute pathology.. A wound on your left elbow was cleaned. Keep the area clean. RETURN to the ED if you experience: redness or hardness around the wound, pain or tenderness, a red streak, yellow or green discharge oozing from the wound, fever or chills. You can take [id number] tylenol for pain. Follow the instructions on the medication bottle. Follow-up with your primary care doctor on Monday to discuss this ED visit and to further evaluate your symptoms. RETURN if: you have focal weakness, severe headache, high fever, persistent vomiting, changes in vision, seizures, or any other new or concerning symptoms. If you think you are having an emergency, call for emergency medical services or present to the emergency department right away. - Post Discharge Activity Laceration/Wound Repair - Laceration/Wound Repair Left Elbow Wound Location: lateral left elbow/upper forearm Wound Length (cm): 3.5cm Depth, Shape: flap Irrigated w/ Saline: Yes Anesthesia: 1% Lidocaine Wound Repaired With: Steri-strips Sterile Dressing Applied: Yes
[2019-02-16 03:17] VITALS: BP 136/71; PULSE 62; TEMP 97.3
== END 2019-02-16 03:11 | disposition home or self-care (01) ==
LOC: JER 20:40
DX: R55 Syncope and collapse (principal); S06.9X9A Unspecified intracranial injury with loss of consciousness of unspecified duration, initial encounter; W18.39XA Other fall on same level, initial encounter; Y93.89 Activity, other specified; Y92.414 Local residential or business street as the place of occurrence of the external cause; Y99.8 Other external cause status; I10 Essential (primary) hypertension; F43.10 Post-traumatic stress disorder, unspecified; F41.0 Panic disorder [episodic paroxysmal anxiety]; F95.2 Tourette's disorder
CPT/HCPCS: 70450-TC; 71045-TC-FY; 99283-25